=== PATIENT | male | born 1955 | race Caucasian/White ===

== ENCOUNTER 2021-09-24 10:40 | Emergency (ER) | payer MEDICARE, BC ==
[2021-09-24] MEDS ORDERED: Sodium Chloride 0.9% 1,000 ML IV ONE (10:45)
[2021-09-24 11:21] LABS: CHLORIDE,CL 107 mmol/L (98-107); SODIUM,NA 144 mmol/L (136-145)
[2021-09-24 11:28] LABS: ANION GAP 14.9 mmol/L (5-15); ESTIMATED GFR 50 mL/min (>=60)
[2021-09-24] MEDS ORDERED: Sodium Chloride 0.9% 1,000 ML IV SCH (11:30)
[2021-09-24] MEDS ORDERED: Ondansetron 4 MG/2 ML SDV IVPUSH ONE (12:11)
== END 2021-09-24 14:06 | disposition home or self-care (01) ==
LOC: VM.ED 10:40
DX: T67.1XXA Heat syncope, initial encounter (principal); I10 Essential (primary) hypertension; R60.0 Localized edema
CPT/HCPCS: 70450; 71045; 80053; 81001; 82550; 82947; 83615; 83880; 84484; 85025; 85379; 93005; 96361; 96374; 99284; 99285-25; J2405; J7030

== ENCOUNTER 2024-09-15 20:43 | Inpatient (IN) | payer MEDICARE, BC ==
[2024-09-15] MEDS ORDERED: Sodium Chloride 0.9% 10 ML Syringe FLUSH PRN (20:49)
[2024-09-15] MEDS: Furosemide 40 MG/4 ML VIAL IV ONE ×2 (20:50→21:15)
[2024-09-15 21:10] LABS: BASOPHILS ABSOLUTE AUTO 0.1 x10^3/uL (0.0-0.2); BASOPHILS PERCENT AUTO 0.3 % (0.2-1.2); EOSINOPHILS ABSOLUTE AUTO 0.4 x10^3/uL (0.0-0.5); EOSINOPHILS PERCENT AUTO 2.4 % (0.0-4.0); HEMATOCRIT 48.2 % (40.0-52.0); IMMATURE GRAN ABSOLUTE AUTO 0.04 x10^3/uL (0.00-0.07); LYMPHOCYTES ABSOLUTE AUTO 2.9 x10^3/uL (1.0-4.8); LYMPHOCYTES PERCENT AUTO 17.9 % (25.0-50.0); MEAN CORPUSCULAR HEMOGLOBIN 29.7 pg (26.0-32.0); MEAN CORPUSCULAR HGB CONC 33.2 g/dL (32.0-36.0); MEAN CORPUSCULAR VOLUME 89.6 fL (78.0-93.0); MONOCYTES ABSOLUTE AUTO 1.3 x10^3/uL (0.0-0.8); MONOCYTES PERCENT AUTO 7.9 % (2.0-11.0); NEUTROPHILS ABSOLUTE AUTO 11.4 x10^3/uL (1.8-7.7); NEUTROPHILS PERCENT AUTO 71.3 % (50.0-80.0); PLATELET COUNT,PLT 239 x10^3/uL (130-400); RED BLOOD CELL COUNT 5.38 x10^6/uL (4.5-6.0)
[2024-09-15 21:40] LABS: A/G RATIO 1.14; ALANINE AMINOTRANSFERASE,ALT 56 U/L (16-63); ALKALINE PHOSPHATASE 99 U/L (46-116); ASPARTATE AMNIOTRANSFERASE,AST 37 U/L (15-37); BLOOD UREA NITROGEN,BUN 28 mg/dL (7-18); C-REACTIVE PROTEIN 0.75 mg/dL (<=0.50); CALCIUM 9.2 mg/dL (8.5-10.1); CARBON DIOXIDE,CO2 27 mmol/L (21-32); CHLORIDE,CL 105 mmol/L (98-107); CREATINE KINASE,CK 122 U/L (39-308); CREATININE 1.4 mg/dL (0.70-1.30); GLUCOSE RANDOM 120 mg/dL (70-99); POTASSIUM,K 4.6 mmol/L (3.5-5.1); PRO B-TYPE NATRIUR PEPT,BNPPRO 824 pg/mL (<=125); PROTEIN TOTAL,TP 7.5 g/dL (6.4-8.2); SODIUM,NA 143 mmol/L (136-145)
[2024-09-15 21:46] LABS: ANION GAP 15.6 mmol/L (5-15); ESTIMATED GFR 54 mL/min (>=60)
[2024-09-15] MEDS: cefTRIAXone 2 GM Vial IVPUSH ONE (21:50)
[2024-09-15 21:52] LABS: APPEARANCE,URINE CLEAR (CLEAR); BILIRUBIN,URINE NEGATIVE (NEGATIVE); COLOR,URINE YELLOW (YELLOW); GLUCOSE,URINE NEGATIVE (NEGATIVE); KETONES,URINE NEGATIVE (NEGATIVE); LEUKOCYTE ESTERASE,URINE NEGATIVE (NEGATIVE); NITRITE,URINE NEGATIVE (NEGATIVE); OCCULT BLOOD,URINE TRACE-INTACT (NEGATIVE); PROTEIN,URINE TRACE mg/dL (NEGATIVE); UROBILINOGEN,URINE 0.2 EU/dL (0.2)
[2024-09-15] MEDS: Azithromycin 500 MG in Sodium Chloride 0.9% 250 ML IV ONE (21:55)
[2024-09-15] MEDS: Ondansetron 4 MG/2 ML SDV IVPUSH ONE (21:56)
[2024-09-15] MEDS: Morphine 4 MG/ML Syringe IVPUSH ONE (21:58)
[2024-09-15 22:00] LABS: BACTERIA,URINE RARE /HPF (NOT SEEN); RBC,URINE 0-5 /HPF (NOT SEEN); SQUAMOUS EPITHELIAL CELLS,UR NOT SEEN /HPF (NOT SEEN); WBC,URINE NOT SEEN /HPF (NOT SEEN)
[2024-09-15 22:01] LABS: MUCUS,URINE MODERATE /LPF (NOT SEEN)
[2024-09-16] MEDS ORDERED: Ondansetron 4 MG/2 ML SDV IV PRN (01:20)
[2024-09-16] MEDS ORDERED: Acetaminophen 325 MG Tab PO PRN (01:20)
[2024-09-16] MEDS ORDERED: Naloxone 0.4 MG/ML SDV IVPUSH PRN (01:20)
[2024-09-16] MEDS ORDERED: Morphine 2 MG/ML SYRINGE IVPUSH PRN (01:20)
[2024-09-16] MEDS ORDERED: Acetaminophen/HYDROcodone 325-5 MG Tab PO PRN (01:20)
[2024-09-16 06:51] LABS: BASOPHILS ABSOLUTE AUTO 0.1 x10^3/uL (0.0-0.2); BASOPHILS PERCENT AUTO 0.4 % (0.2-1.2); EOSINOPHILS PERCENT AUTO 0.1 % (0.0-4.0); HEMATOCRIT 43.3 % (40.0-52.0); HEMOGLOBIN 14.2 g/dL (14.0-18.0); IMMATURE GRAN ABSOLUTE AUTO 0.02 x10^3/uL (0.00-0.07); LYMPHOCYTES ABSOLUTE AUTO 1.8 x10^3/uL (1.0-4.8); LYMPHOCYTES PERCENT AUTO 12.8 % (25.0-50.0); MEAN CORPUSCULAR HEMOGLOBIN 29.7 pg (26.0-32.0); MEAN CORPUSCULAR HGB CONC 32.8 g/dL (32.0-36.0); MEAN CORPUSCULAR VOLUME 90.6 fL (78.0-93.0); MONOCYTES ABSOLUTE AUTO 1.3 x10^3/uL (0.0-0.8); MONOCYTES PERCENT AUTO 9.1 % (2.0-11.0); NEUTROPHILS ABSOLUTE AUTO 10.9 x10^3/uL (1.8-7.7); NEUTROPHILS PERCENT AUTO 77.5 % (50.0-80.0); PLATELET COUNT,PLT 199 x10^3/uL (130-400); RED BLOOD CELL COUNT 4.78 x10^6/uL (4.5-6.0); WHITE BLOOD CELL COUNT,WBC 14.1 x10^3/uL (4.0-10.0)
[2024-09-16 07:02] LABS: CALCIUM 8.3 mg/dL (8.5-10.1); CREATININE 1.6 mg/dL (0.70-1.30); EST CRCL DRUG DOSING (CG) 42.35 mL/min; POTASSIUM,K 4.4 mmol/L (3.5-5.1)
[2024-09-16 07:06] LABS: ANION GAP 12.4 mmol/L (5-15)
[2024-09-16] MEDS: Rivaroxaban 10 MG Tab PO SCH (09:53)
[2024-09-16] MEDS: Valsartan 40 MG Tab PO SCH (09:54)
[2024-09-16] MEDS: Metoprolol Succinate 25 MG Tab.ER PO SCH (09:55)
[2024-09-16] MEDS: Furosemide 40 MG/4 ML VIAL IV SCH (09:56)
[2024-09-16 13:13] LABS: MAGNESIUM 1.7 mg/dL (1.8-2.4); PHOSPHORUS 4.6 mg/dL (2.6-4.7)
[2024-09-17] MEDS: Magnesium Sulfate 2 GM/50 mL 2 GM in Premix Bag 1 BAG IV ONE (12:20)
[2024-09-17] MEDS: Furosemide 40 MG Tab PO SCH (19:52)
[2024-09-18 12:34] LABS: BASOPHILS PERCENT AUTO 0.4 % (0.2-1.2); EOSINOPHILS ABSOLUTE AUTO 0.8 x10^3/uL (0.0-0.5); EOSINOPHILS PERCENT AUTO 8.5 % (0.0-4.0); HEMATOCRIT 43.9 % (40.0-52.0); HEMOGLOBIN 14.8 g/dL (14.0-18.0); IMMATURE GRAN ABSOLUTE AUTO 0.01 x10^3/uL (0.00-0.07); LYMPHOCYTES ABSOLUTE AUTO 1.5 x10^3/uL (1.0-4.8); LYMPHOCYTES PERCENT AUTO 16.1 % (25.0-50.0); MEAN CORPUSCULAR HEMOGLOBIN 29.9 pg (26.0-32.0); MEAN CORPUSCULAR HGB CONC 33.7 g/dL (32.0-36.0); MEAN CORPUSCULAR VOLUME 88.7 fL (78.0-93.0); MONOCYTES PERCENT AUTO 10.4 % (2.0-11.0); NEUTROPHILS ABSOLUTE AUTO 6.1 x10^3/uL (1.8-7.7); NEUTROPHILS PERCENT AUTO 64.5 % (50.0-80.0); PLATELET COUNT,PLT 208 x10^3/uL (130-400); RED BLOOD CELL COUNT 4.95 x10^6/uL (4.5-6.0); WHITE BLOOD CELL COUNT,WBC 9.4 x10^3/uL (4.0-10.0)
[2024-09-18 12:46] LABS: CALCIUM 9.1 mg/dL (8.5-10.1); CREATININE 1.3 mg/dL (0.70-1.30); EST CRCL DRUG DOSING (CG) 52.12 mL/min; MAGNESIUM 2.1 mg/dL (1.8-2.4); POTASSIUM,K 3.8 mmol/L (3.5-5.1)
[2024-09-18 12:54] LABS: ANION GAP 9.8 mmol/L (5-15)
[2024-09-19 08:12] LABS: CALCIUM 9.3 mg/dL (8.5-10.1); CREATININE 1.3 mg/dL (0.70-1.30); EST CRCL DRUG DOSING (CG) 52.12 mL/min; MAGNESIUM 2.1 mg/dL (1.8-2.4); POTASSIUM,K 4.1 mmol/L (3.5-5.1)
[2024-09-19 08:13] LABS: ANION GAP 8.1 mmol/L (5-15)
[2024-09-19] MEDS ORDERED: Valsartan 40 MG Tab PO SCH (09:00)
[2024-09-19 14:39] VITALS: BP 123/56; PULSE 57
== END 2024-09-19 15:10 | disposition short-term general hospital (02) | DRG 291 ==
LOC: VM.ED 20:43 → VM.MS 23:50
PROVIDERS: ADMIT Family Medicine; ATTEND Family Medicine
PROC: 0T9B70Z Drainage of Bladder with Drainage Device, Via Natural or Artificial Opening (ICD-10-PCS; principal; 2024-09-15)
PROC: 5A09357 Assistance with Respiratory Ventilation, Less than 24 Consecutive Hours, Continuous Positive Airway Pressure (ICD-10-PCS; 2024-09-15)
DX: I13.0 Hypertensive heart and chronic kidney disease with heart failure and stage 1 through stage 4 chronic kidney disease, or unspecified chronic kidney disease (principal); I12.9 Hypertensive chronic kidney disease with stage 1 through stage 4 chronic kidney disease, or unspecified chronic kidney disease; J96.01 Acute respiratory failure with hypoxia; N18.30 Chronic kidney disease, stage 3 unspecified; N17.9 Acute kidney failure, unspecified; I47.20 Ventricular tachycardia, unspecified; I50.9 Heart failure, unspecified; I48.0 Paroxysmal atrial fibrillation; N18.32 Chronic kidney disease, stage 3b; E83.42 Hypomagnesemia; D72.829 Elevated white blood cell count, unspecified; Z79.01 Long term (current) use of anticoagulants; Z79.899 Other long term (current) drug therapy; Z98.890 Other specified postprocedural states
CPT/HCPCS: 36415; 51702; 71045; 80048; 80053; 81001; 82550; 83605; 83735; 83880; 84100; 84484; 85025; 86140; 87040; 93005; 93010; 94660; 94760; 96365; 96375; 99223; 99223-GT; 99232; 99232-GT; 99233; 99233-GT; 99239; 99239-GT; 99284; 99285-25; A9270-GY; J0456; J0696; J1938; J2270; J2405; J3475; J7050; Q3014